=== PATIENT | female | born 1960 | race Caucasian/White ===

== ENCOUNTER → 2016-06-23 | Outpatient (REF) | payer OTHER | LOC: M LAB REF 13:00 | PROVIDERS: ATTEND Physician Assistant Medical | DX: R50.9 Fever, unspecified (principal) ==

== ENCOUNTER → 2016-08-26 | Outpatient (CLI) | payer MEDICARE, OTHER ==
--- NOTE | 2016-08-26 15:58 | REPMRS ---
Patient History The patient states she had a clinical breast exam in 08/15 Patient is postmenopausal. No known family history of cancer. Digital Woman Screen Mammo: August 26, 2016 - Exam #: [id number] Bilateral CC and MLO view(s) were taken. Technologist: Daisha Chapin, Technologist Prior study comparison: July 31, 2015, left breast digital mammo diagnostic unilateral, performed at [facility]. July 24, 2015, digital woman screen mammo performed at [facility]. 2009, bilateral mammogram, performed at [facility]. FINDINGS: The breast tissue is almost entirely fat. There has been no change in the appearance of the mammogram from the prior studies. There is no interval development of dominant mass, areas of architectural distortion, or clustered microcalcification typical of malignancy. Scattered lymph nodes are seen in the axilla. No significant changes when compared with prior studies. ASSESSMENT: BI-RADS/ACR category 2 mammogram. Benign finding(s). Recommendation Routine screening mammogram in 1 year. A. Negative x-ray reports should not delay biopsy if a dominant or clinically suspicious mass is present. B. Four to eight percent of cancers are not identified by mammography. C. Adenosis and dense breast may obscure an underlying neoplasm.(for women over age 40). This mammogram was interpreted with the aid of an FDA-approved computer-aided dectection system. Electronically Signed By: Alexandr Ludwig MD 08/26/16 [id number]
== END ==
LOC: M WHC 12:59
PROVIDERS: ATTEND Nurse Practitioner Women's Health
DX: Z12.31 Encounter for screening mammogram for malignant neoplasm of breast (principal)
CPT/HCPCS: G0202; G0463

== ENCOUNTER → 2016-10-21 | Outpatient (REF) | payer MEDICARE, OTHER | LOC: M LABDRAW1 11:27 | PROVIDERS: ATTEND Family Medicine | DX: E11.9 Type 2 diabetes mellitus without complications (principal) ==

== ENCOUNTER → 2017-05-14 | Outpatient (REF) | payer MEDICARE, MEDICAID ==
[2017-05-14 20:07] LABS: ANION GAP 10 MEQ/L (8-16); BLOOD UREA NITROGEN 14 MG/DL (7-18); CALCIUM LEVEL 9.4 MG/DL (8.5-10.1); CARBON DIOXIDE LEVEL 27 MEQ/L (21-32); CHLORIDE LEVEL 100 MEQ/L (98-107); CHOLESTEROL LEVEL 160 MG/DL (<200); CREATININE FOR GFR 0.81 MG/DL (0.55-1.02); GLOMERULAR FILTRATION RATE > 60.0 (>51); GLUCOSE, FASTING 139 MG/DL (70-105); POTASSIUM SERUM 4.4 MEQ/L (3.5-5.1); SODIUM LEVEL 137 MEQ/L (136-145); TRIGLYCERIDES LEVEL 208 MG/DL (<150)
== END ==
LOC: M SFHCPLAZ 12:48
PROVIDERS: ATTEND Family Medicine
DX: E11.9 Type 2 diabetes mellitus without complications (principal); E78.5 Hyperlipidemia, unspecified; E55.9 Vitamin D deficiency, unspecified

== ENCOUNTER → 2017-09-24 | Outpatient (REF) | payer MEDICARE, MEDICAID ==
[2017-09-24 21:07] LABS: ESTIMATED AVERAGE GLUCOSE 209 MG/DL (60-110); HEMOGLOBIN A1c 8.9 %
[2017-09-24 21:11] LABS: MALB URINE SIEMENS 61.5 MG/L
== END ==
LOC: M SFHCPLAZ 15:17
DX: E11.9 Type 2 diabetes mellitus without complications (principal)

== ENCOUNTER → 2017-09-24 | Outpatient (CLI) | payer MEDICARE, MEDICAID | LOC: M LRY 15:24 | DX: M51.36 Other intervertebral disc degeneration, lumbar region (principal); M25.78 Osteophyte, vertebrae; M54.5 Low back pain; E11.9 Type 2 diabetes mellitus without complications | CPT/HCPCS: 83036 ==

== ENCOUNTER 2017-11-12 06:44 | Day surgery (SDC) | payer MEDICARE, MEDICAID ==
[2017-11-12] MEDS: NS 1,000 ML IV (07:00)
[2017-11-12] MEDS ORDERED: PROPOFOL 500 MG/50 ML VIAL As Ordered (07:27)
[2017-11-12] MEDS ORDERED: fentaNYL 100 MCG/2 ML INJECTION (J3010) As Ordered (07:27)
[2017-11-12] MEDS ORDERED: LIDOCAINE 2% INJ 100 MG/5 ML SDV (FOR ANES.) As Ordered (07:27)
[2017-11-12] MEDS ORDERED: GLUCAGON FOR INJ 1 MG VIAL (J1610) As Ordered (07:52)
== END 2017-11-12 09:00 | disposition home or self-care (01) ==
LOC: M OPP 06:44
DX: Z12.11 Encounter for screening for malignant neoplasm of colon (principal); D12.5 Benign neoplasm of sigmoid colon; D12.3 Benign neoplasm of transverse colon; D12.2 Benign neoplasm of ascending colon; K57.30 Diverticulosis of large intestine without perforation or abscess without bleeding; K64.8 Other hemorrhoids; R10.84 Generalized abdominal pain; K29.70 Gastritis, unspecified, without bleeding; K42.9 Umbilical hernia without obstruction or gangrene; R06.02 Shortness of breath; I10 Essential (primary) hypertension; E78.5 Hyperlipidemia, unspecified; E11.9 Type 2 diabetes mellitus without complications; M19.90 Unspecified osteoarthritis, unspecified site; M54.89 Other dorsalgia; L30.9 Dermatitis, unspecified; F41.9 Anxiety disorder, unspecified; F32.9 Major depressive disorder, single episode, unspecified; G43.909 Migraine, unspecified, not intractable, without status migrainosus; Z78.0 Asymptomatic menopausal state; J45.909 Unspecified asthma, uncomplicated; J44.9 Chronic obstructive pulmonary disease, unspecified; R06.83 Snoring; G47.8 Other sleep disorders; F17.210 Nicotine dependence, cigarettes, uncomplicated; Z79.82 Long term (current) use of aspirin; Z79.899 Other long term (current) drug therapy; Z79.84 Long term (current) use of oral hypoglycemic drugs
CPT/HCPCS: 45385

== ENCOUNTER → 2018-03-24 | Outpatient (CLI) | payer MEDICARE, MEDICAID ==
[2018-03-24 12:09] LABS: HEMATOCRIT 50.7 % (36.0-47.0); HEMOGLOBIN 16.7 g/dl (12.0-15.5)
[2018-03-24 12:32] LABS: GLUCOSE, FASTING 150 MG/DL (70-100)
[2018-03-24 13:12] LABS: ESTIMATED AVERAGE GLUCOSE 163 MG/DL (60-110); HEMOGLOBIN A1c 7.3 %
== END ==
LOC: M LRY 08:52
DX: E11.9 Type 2 diabetes mellitus without complications (principal)
CPT/HCPCS: 82947

== ENCOUNTER → 2018-04-19 | Outpatient (REF) | payer MEDICARE, MEDICAID | LOC: M SFHCPLAZ 16:48 | DX: M54.5 Low back pain (principal) | CPT/HCPCS: 80307 ==

== ENCOUNTER 2018-10-18 15:57 | Emergency (ER) | payer MEDICARE, MEDICAID ==
[~2018-10-18] VITALS: Ht 160 cm; Wt 90.9 kg
[~2018-10-18 15:57] MED LIST: ADV250INH; ALBU83IN; ALPR0.5T7; ASPI1TAB15; CHLO125TA; FLUTISP; GLYB25TA; HYDR-3713; LOSA50TA88; METF-415; METH1TAB40; PARO37.54; PROAAER10; RIZA10TA4; SIMV20TA2
[2018-10-18 15:58] VITALS: BP 137/91
== END 2018-10-18 17:30 | disposition left against medical advice (07) ==
LOC: M ED 15:57
DX: R73.09 Other abnormal glucose (principal); Z53.21 Procedure and treatment not carried out due to patient leaving prior to being seen by health care provider

== ENCOUNTER → 2018-10-22 | Outpatient (REF) | payer MEDICARE, MEDICAID ==
[2018-10-22 12:15] LABS: BASO # 0.1 10^3/uL (0.0-0.2); BASO % 0.5 % (0.0-1.0); EOS # 0.4 10^3/uL (0.0-0.50); EOS % 3.8 % (0.0-3.0); HEMATOCRIT 49.5 % (36.0-47.0); LYMPH # 1.8 10^3/uL (1.5-4.5); LYMPH % 16.4 % (24.0-44.0); MEAN CORPUSCULAR HEMOGLOBIN 30.1 pg (27.0-33.0); MEAN CORPUSCULAR HGB CONC 34.3 g/dl (32.0-36.5); MEAN CORPUSCULAR VOLUME 87.6 fl (80.0-96.0); MONO % 9.1 % (0.0-5.0); NEUTROPHILS # 7.7 10^3/uL (1.8-7.7); NEUTROPHILS % 69.7 % (36.0-66.0); PLATELET COUNT, AUTOMATED 295 10^3/uL (150-450); RED BLOOD COUNT 5.65 10^6/uL (4.00-5.40); WHITE BLOOD COUNT 11.1 10^3/uL (4.0-10.0)
[2018-10-22 12:34] LABS: BLOOD UREA NITROGEN 20 MG/DL (7-18); C REACTIVE PROTEIN QUANTITATIV 5.34 MG/DL (0.00-0.30); CALCIUM LEVEL 9.7 MG/DL (8.5-10.1); CARBON DIOXIDE LEVEL 27 MEQ/L (21-32); CHLORIDE LEVEL 94 MEQ/L (98-107); CREATININE FOR GFR 0.96 MG/DL (0.55-1.30); GLOMERULAR FILTRATION RATE > 60.0 (>51); GLUCOSE, FASTING 224 MG/DL (70-100); POTASSIUM SERUM 3.5 MEQ/L (3.5-5.1); SODIUM LEVEL 130 MEQ/L (136-145)
[2018-10-22 13:42] LABS: HEMOGLOBIN A1c 11.8 %
== END ==
LOC: M LABDRAW1 11:55
PROVIDERS: ATTEND Student in an Organized Health Care Education/Training Program
DX: L03.818 Cellulitis of other sites (principal); E11.9 Type 2 diabetes mellitus without complications

== ENCOUNTER → 2018-11-16 | Outpatient (REF) | payer MEDICARE, MEDICAID ==
[2018-11-16 12:38] LABS: APPEARANCE, URINE CLEAR (CLEAR); BACTERIA, URINE AUTO 1+ (NEGATIVE); BILIRUBIN, URINE AUTO NEGATIVE (NEGATIVE); BLOOD, URINE BLOOD NEGATIVE (NEGATIVE); COLOR, URINE YELLOW (YELLOW); GLUCOSE, URINE (UA) AUTO NEGATIVE (NEGATIVE); KETONE, URINE AUTO NEGATIVE (NEGATIVE); LEUKOCYTE ESTERASE, URINE AUTO TRACE (NEGATIVE); MUCUS, URINE SMALL (NEGATIVE); NITRITE, URINE AUTO NEGATIVE (NEGATIVE); PROTEIN, URINE AUTO NEGATIVE (NEGATIVE); RBC, URINE AUTO 0 /HPF (0-3); SPECIFIC GRAVITY URINE AUTO 1.013 (1.002-1.035); SQUAMOUS EPITHELIAL CELL UR AU 3 /HPF (0-6); UROBILINOGEN, URINE AUTO 0.2 mg/dL (0.0-2.0); WBC, URINE AUTO 1 /HPF (0-3)
== END ==
LOC: M SFHCPLAZ 08:26
PROVIDERS: ATTEND Internal Medicine
DX: D75.1 Secondary polycythemia (principal)

== ENCOUNTER → 2018-12-23 | Outpatient (REF) | payer MEDICARE, MEDICAID ==
[2018-12-23 18:09] LABS: BASO # 0.1 10^3/uL (0.0-0.2); BASO % 0.8 % (0.0-1.0); EOS # 0.7 10^3/uL (0.0-0.50); EOS % 6.2 % (0.0-3.0); HEMATOCRIT 50.6 % (36.0-47.0); HEMOGLOBIN 17.4 g/dl (12.0-15.5); LYMPH # 3.8 10^3/uL (1.5-4.5); LYMPH % 34.7 % (24.0-44.0); MEAN CORPUSCULAR HEMOGLOBIN 30.1 pg (27.0-33.0); MEAN CORPUSCULAR HGB CONC 34.4 g/dl (32.0-36.5); MEAN CORPUSCULAR VOLUME 87.4 fl (80.0-96.0); MONO # 0.7 10^3/uL (0.0-0.8); MONO % 6.5 % (0.0-5.0); NEUTROPHILS # 5.7 10^3/uL (1.8-7.7); NEUTROPHILS % 51.5 % (36.0-66.0); PLATELET COUNT, AUTOMATED 314 10^3/uL (150-450); RED BLOOD COUNT 5.79 10^6/uL (4.00-5.40)
[2018-12-23 18:13] LABS: BLOOD UREA NITROGEN 17 MG/DL (7-18); CALCIUM LEVEL 9.9 MG/DL (8.5-10.1); CARBON DIOXIDE LEVEL 31 MEQ/L (21-32); CHLORIDE LEVEL 102 MEQ/L (98-107); CREATININE FOR GFR 0.74 MG/DL (0.55-1.30); GLOMERULAR FILTRATION RATE > 60.0 (>51); GLUCOSE, FASTING 119 MG/DL (70-100); POTASSIUM SERUM 3.8 MEQ/L (3.5-5.1); SODIUM LEVEL 140 MEQ/L (136-145)
[2018-12-23 19:25] LABS: HEMOGLOBIN A1c 7.7 %
== END ==
LOC: M SFHCPLAZ 12:54
PROVIDERS: ATTEND Family Medicine
DX: D75.1 Secondary polycythemia (principal); E11.9 Type 2 diabetes mellitus without complications

== ENCOUNTER → 2019-03-03 | Outpatient (CLI) | payer MEDICARE, MEDICAID ==
--- NOTE | 2019-03-03 12:55 | REPMRS ---
Patient History The patient states she has not had a clinical breast exam in over a year. No known family history of cancer. 3D TOMOSYNTHESIS WAS PERFORMED. The [facility] lifetime risk for breast cancer is 7.2 %. Digital Woman Screen Mammo: March 03, 2019 - Exam #: [id number] Bilateral CC and MLO view(s) were taken. Technologist: Leatha Adler, Technologist Prior study comparison: August 26, 2016, digital woman screen mammo performed at [facility]. July 31, 2015, left breast digital mammo diagnostic unilateral, performed at [facility]. FINDINGS: There are scattered fibroglandular densities. There has been no change in the appearance of the mammogram from the prior studies. There is a mild amount of residual fibroglandular tissue which is fairly symmetric. There is no interval development of dominant mass, architectural distortion, or clustered microcalcification suggestive of malignancy. Assessment: BI-RADS/ACR category 1 mammogram. Negative Mammogram. Recommendation Routine screening mammogram in 1 year (for women over age 40). This mammogram was interpreted with the aid of an FDA-approved computer-aided dectection system. Electronically Signed By: Girish Mancini MD 03/03/19 [id number]
== END ==
LOC: M WHC 11:27
PROVIDERS: ATTEND Family Medicine
DX: Z12.31 Encounter for screening mammogram for malignant neoplasm of breast (principal)

== ENCOUNTER → 2019-03-30 | Outpatient (REF) | payer MEDICARE, MEDICAID ==
[~2019-03-30] MED LIST changes: -RIZA10TA4; +RIZA10TA58
== END ==
LOC: M SFHCPLAZ 10:43
PROVIDERS: ATTEND Family Medicine
DX: E11.9 Type 2 diabetes mellitus without complications (principal); I10 Essential (primary) hypertension; D75.1 Secondary polycythemia; Z53.8 Procedure and treatment not carried out for other reasons

== ENCOUNTER → 2019-06-22 | Outpatient (REF) | payer MEDICARE, MEDICAID ==
[~2019-06-22] MED LIST changes: -SIMV20TA2; +SIMV20TA22
[2019-06-22 12:02] LABS: HEMATOCRIT 51.5 % (36.0-47.0); HEMOGLOBIN 17.4 g/dl (12.0-15.5); MEAN CORPUSCULAR HEMOGLOBIN 31.5 pg (27.0-33.0); MEAN CORPUSCULAR HGB CONC 33.8 g/dl (32.0-36.5); MEAN CORPUSCULAR VOLUME 93.1 fl (80.0-96.0); PLATELET COUNT, AUTOMATED 306 10^3/uL (150-450); RED BLOOD COUNT 5.53 10^6/uL (4.00-5.40); WHITE BLOOD COUNT 12.2 10^3/uL (4.0-10.0)
[2019-06-22 12:13] LABS: BLOOD UREA NITROGEN 14 MG/DL (7-18); CALCIUM LEVEL 9.6 MG/DL (8.5-10.1); CARBON DIOXIDE LEVEL 29 MEQ/L (21-32); CHLORIDE LEVEL 99 MEQ/L (98-107); CHOLESTEROL LEVEL 157 MG/DL (<200); CHOLESTEROL RISK RATIO 4.025 (<5); CREATININE FOR GFR 0.74 MG/DL (0.55-1.30); GLOMERULAR FILTRATION RATE > 60.0 (>51); GLUCOSE, FASTING 120 MG/DL (70-100); HDL CHOLESTEROL 39 MG/DL (>40); LDL CHOLESTEROL 90 MG/DL (<100); NON-HDL-C 118 MG/DL; POTASSIUM SERUM 4.2 MEQ/L (3.5-5.1); SODIUM LEVEL 136 MEQ/L (136-145); TRIGLYCERIDES LEVEL 140 MG/DL (<150)
[2019-06-22 13:09] LABS: HEMOGLOBIN A1c 6.2 %
== END ==
LOC: M SFHCPLAZ 08:38
PROVIDERS: ATTEND Family Medicine
DX: E11.9 Type 2 diabetes mellitus without complications (principal); I10 Essential (primary) hypertension; D75.1 Secondary polycythemia

== ENCOUNTER → 2019-06-28 | Outpatient (CLI) | payer MEDICARE, MEDICAID ==
--- NOTE | 2019-06-28 13:13 | REP ---
Low-dose lung screening CT of the chest: Comparison is 06/03/2018. The study is performed without IV contrast. The images are presented at lung windowing only. There are no lung nodules or masses. There are no infiltrates or pleural effusions. Impression: Category one low-dose lung screening CT of the chest. The probability of malignancy is less than 1%. Depending on risk factors consider annual follow-up low-dose lung screening CT. Electronically Signed by Girish Villarreal MD 06/28/2019 01:05 P
== END ==
LOC: M RAD 09:57
PROVIDERS: ATTEND Internal Medicine Pulmonary Disease
DX: Z12.2 Encounter for screening for malignant neoplasm of respiratory organs (principal); F17.210 Nicotine dependence, cigarettes, uncomplicated; J44.0 Chronic obstructive pulmonary disease with (acute) lower respiratory infection
CPT/HCPCS: G0297; G0463

== ENCOUNTER → 2019-09-30 | Outpatient (REF) | payer MEDICARE, OTHER ==
[2019-09-30 13:28] LABS: HEMATOCRIT 46.8 % (36.0-47.0); HEMOGLOBIN 16.5 g/dl (12.0-15.5); MEAN CORPUSCULAR HEMOGLOBIN 31.9 pg (27.0-33.0); MEAN CORPUSCULAR HGB CONC 35.3 g/dl (32.0-36.5); MEAN CORPUSCULAR VOLUME 90.3 fl (80.0-96.0); PLATELET COUNT, AUTOMATED 319 10^3/uL (150-450); RED BLOOD COUNT 5.18 10^6/uL (4.00-5.40); WHITE BLOOD COUNT 11.2 10^3/uL (4.0-10.0)
[2019-09-30 14:00] LABS: MALB URINE SIEMENS 27.7 MG/L; MAU/CREAT RATIO 33.3 MCG/MG (0.0-30.0)
[2019-09-30 14:13] LABS: HEMOGLOBIN A1c 7.2 %
== END ==
LOC: M SFHCPLAZ 11:10
PROVIDERS: ATTEND Family Medicine
DX: E11.9 Type 2 diabetes mellitus without complications (principal); D75.1 Secondary polycythemia
CPT/HCPCS: 36415; 82043; 82570; 83036; 85027; G0463

== ENCOUNTER → 2019-11-18 | Outpatient (CLI) | payer MEDICARE, OTHER ==
[2019-11-18 16:55] LABS: BASO # 0.1 10^3/uL (0.0-0.2); BASO % 1.1 % (0.0-1.0); EOS # 0.8 10^3/uL (0.0-0.5); EOS % 7.9 % (0.0-3.0); HEMATOCRIT 47.5 % (36.0-47.0); HEMOGLOBIN 16.9 g/dl (12.0-15.5); LYMPH % 28.9 % (24.0-44.0); MEAN CORPUSCULAR HEMOGLOBIN 31.4 pg (27.0-33.0); MEAN CORPUSCULAR HGB CONC 35.6 g/dl (32.0-36.5); MEAN CORPUSCULAR VOLUME 88.3 fl (80.0-96.0); MONO # 0.7 10^3/uL (0.0-0.8); MONO % 7.1 % (0.0-5.0); NEUTROPHILS # 5.7 10^3/uL (1.5-8.5); NEUTROPHILS % 54.4 % (36.0-66.0); PLATELET COUNT, AUTOMATED 332 10^3/uL (150-450); RED BLOOD COUNT 5.38 10^6/uL (4.00-5.40); WHITE BLOOD COUNT 10.4 10^3/uL (4.0-10.0)
[2019-11-18 16:57] LABS: C REACTIVE PROTEIN QUANTITATIV 0.93 MG/DL (0.00-0.30); RHEUMATOID FACTOR QUANT < 10.0 IU/ML (<15.0); URIC ACID 5.2 MG/DL (2.6-6.0)
[2019-11-18 17:40] LABS: ERYTHROCYTE SEDIMENTATION RATE 12 mm/hr (0-30)
[2019-11-21 19:09] LABS: ANTINUCLEAR ANTIBODIES DIRECT Negative (Negative); Lyme Disease IgG/IgM Antibodie <0.91 ISR (0.00-0.90); Lyme Disease IgM Ab Quantitati <0.80 index (0.00-0.79)
== END ==
LOC: M PLALAB 14:04
PROVIDERS: ATTEND Physician Assistant Surgical
DX: M25.522 Pain in left elbow (principal)

== ENCOUNTER → 2020-07-26 | Outpatient (CLI) | payer MEDICARE, OTHER ==
[~2020-07-26] MED LIST changes: +ASPI-546; -ASPI1TAB15; +METH-1164; -METH1TAB40
--- NOTE | 2020-07-26 14:01 | REP ---
INDICATION: LUNG SCREENING. COMPARISON: 06/28/2019, 06/03/2018 TECHNIQUE: Low-dose lung CT screening protocol with thin section lung windows presented for review. FINDINGS: Lung la are hyperinflated some minor subpleural dependent atelectatic change in the posterior mid lower lung zones unchanged. Some subtle ground-glass opacities are seen in the right medial apex unchanged representing some fibrosis. Some curvilinear fibro atelectatic change in the lateral basal segment left lower lobe is also stable. Some lateral segment right middle lobe fibro atelectatic change also stable. No pulmonary nodule, parenchymal mass, dense consolidation, pleural thickening or effusion. Heart is not enlarged. Central pulmonary arteries appear symmetric but prominent at the moe consistent with COPD and pulmonary artery hypertension. IMPRESSION: 1. Lung RADS category 1 negative examination, no evidence of malignancy. Stable examination. Patients with this category of findings have less than 1% chance of malignancy at the time of the examination. Patient's at height and risk for lung malignancy should have annual lung screening CT. <Electronically signed by Alexandr Ludwig > 07/26/20 [id number]
== END ==
LOC: M RAD 12:47
PROVIDERS: ATTEND Internal Medicine Pulmonary Disease
DX: Z12.2 Encounter for screening for malignant neoplasm of respiratory organs (principal); F17.210 Nicotine dependence, cigarettes, uncomplicated

== ENCOUNTER → 2021-01-29 | Outpatient (CLI) | payer OTHER ==
[~2021-01-29] MED LIST changes: +GLYB2.5T7; -GLYB25TA; +LOSA50TA28; -LOSA50TA88
[2021-01-29 13:06] LABS: BLOOD UREA NITROGEN 16 MG/DL (7-18); CALCIUM LEVEL 9.8 MG/DL (8.5-10.1); CARBON DIOXIDE LEVEL 30 MEQ/L (21-32); CHLORIDE LEVEL 95 MEQ/L (98-107); CHOLESTEROL LEVEL 158 MG/DL (<200); CHOLESTEROL RISK RATIO 3.853 (<5); CREATININE FOR GFR 0.72 MG/DL (0.55-1.30); GLOMERULAR FILTRATION RATE > 60.0 (>51); GLUCOSE, FASTING 141 MG/DL (70-100); HDL CHOLESTEROL 41 MG/DL (>40); LDL CHOLESTEROL 90 MG/DL (<100); NON-HDL-C 117 MG/DL; POTASSIUM SERUM 4.2 MEQ/L (3.5-5.1); SODIUM LEVEL 133 MEQ/L (136-145); TRIGLYCERIDES LEVEL 134 MG/DL (<150)
[2021-01-29 13:32] LABS: HEMOGLOBIN A1c 6.6 %
== END ==
LOC: M PLALAB 09:12
PROVIDERS: ATTEND Student in an Organized Health Care Education/Training Program
DX: Z79.899 Other long term (current) drug therapy (principal)

== ENCOUNTER → 2021-08-16 | Outpatient (CLI) | payer OTHER ==
[~2021-08-16] MED LIST changes: -PARO37.54; +PARO37.55
[2021-08-16 15:07] LABS: BASO # 0.1 10^3/uL (0.0-0.2); BASO % 0.9 % (0.0-1.0); EOS # 0.7 10^3/uL (0.0-0.5); EOS % 6.7 % (0.0-3.0); HEMATOCRIT 47.5 % (36.0-47.0); HEMOGLOBIN 16.7 g/dl (12.0-15.5); LYMPH # 2.7 10^3/uL (1.5-5.0); LYMPH % 26.7 % (24.0-44.0); MEAN CORPUSCULAR HEMOGLOBIN 31.2 pg (27.0-33.0); MEAN CORPUSCULAR HGB CONC 35.2 g/dl (32.0-36.5); MEAN CORPUSCULAR VOLUME 88.8 fl (80.0-96.0); MONO # 0.8 10^3/uL (0.0-0.8); MONO % 8.3 % (2.0-8.0); NEUTROPHILS # 5.7 10^3/uL (1.5-8.5); NEUTROPHILS % 56.9 % (36.0-66.0); PLATELET COUNT, AUTOMATED 297 10^3/uL (150-450); RED BLOOD COUNT 5.35 10^6/uL (4.00-5.40); WHITE BLOOD COUNT 10.1 10^3/uL (4.0-10.0)
[2021-08-16 15:34] LABS: HEMOGLOBIN A1c 6.9 %
[2021-08-16 15:43] LABS: MALB URINE SIEMENS 97.3 MG/L; MAU/CREAT RATIO 44.2 MCG/MG (0.0-30.0)
== END ==
LOC: M LAB 14:13
PROVIDERS: ATTEND Student in an Organized Health Care Education/Training Program
DX: E55.9 Vitamin D deficiency, unspecified (principal); D75.1 Secondary polycythemia; E11.9 Type 2 diabetes mellitus without complications; Z79.899 Other long term (current) drug therapy

== ENCOUNTER → 2021-08-16 | Outpatient (CLI) | payer OTHER | LOC: M RAD 13:54 | PROVIDERS: ATTEND Internal Medicine Pulmonary Disease | DX: Z12.2 Encounter for screening for malignant neoplasm of respiratory organs (principal); F17.210 Nicotine dependence, cigarettes, uncomplicated; E55.9 Vitamin D deficiency, unspecified; D75.1 Secondary polycythemia; E11.9 Type 2 diabetes mellitus without complications; Z79.899 Other long term (current) drug therapy ==

== ENCOUNTER → 2021-12-20 | Outpatient (CLI) | payer OTHER ==
[~2021-12-20] MED LIST changes: +ALBU2.5V10; -ALBU83IN
[2021-12-20 14:36] LABS: BLOOD UREA NITROGEN 9 MG/DL (7-18); CALCIUM LEVEL 9.6 MG/DL (8.5-10.1); CARBON DIOXIDE LEVEL 30 MEQ/L (21-32); CHLORIDE LEVEL 99 MEQ/L (98-107); CREATININE FOR GFR 0.82 MG/DL (0.55-1.30); GLOMERULAR FILTRATION RATE > 60.0 (>51); GLUCOSE, FASTING 204 MG/DL (70-100); SODIUM LEVEL 134 MEQ/L (136-145)
[2021-12-20 15:15] LABS: TOTAL 25(OH) VITAMIN D 23.7 NG/ML (30.0-100.0)
[2021-12-20 17:24] LABS: MAU/CREAT RATIO 132.5 MCG/MG (0.0-30.0)
[2021-12-20 17:36] LABS: HEMOGLOBIN A1c 8.9 %
== END ==
LOC: M WUC 11:22
PROVIDERS: ATTEND Student in an Organized Health Care Education/Training Program
DX: E55.9 Vitamin D deficiency, unspecified (principal); E11.9 Type 2 diabetes mellitus without complications; Z79.899 Other long term (current) drug therapy

== ENCOUNTER → 2022-01-16 | Outpatient (CLI) | payer OTHER | LOC: M SOG 08:43 | PROVIDERS: ATTEND Orthopaedic Surgery Adult Reconstructive Orthopaedic Surgery | DX: R52 Pain, unspecified (principal) ==

== ENCOUNTER → 2022-05-07 | Outpatient (CLI) | payer OTHER ==
[2022-05-07 17:03] LABS: BLOOD UREA NITROGEN 11 MG/DL (9-23); CALCIUM LEVEL 9.6 MG/DL (8.5-10.1); CARBON DIOXIDE LEVEL 32 MMOL/L (20-31); CHLORIDE LEVEL 94 MMOL/L (98-107); CHOLESTEROL LEVEL 134 MG/DL (<200); CREATININE FOR GFR 0.56 MG/DL (0.55-1.30); GLOMERULAR FILTRATION RATE > 60.0 (>51); GLUCOSE, FASTING 161 MG/DL (60-100); HDL CHOLESTEROL 40.6 MG/DL (>40); LDL CHOLESTEROL 74.4 MG/DL (<100); NON-HDL-C 93 MG/DL; POTASSIUM SERUM 4.3 MMOL/L (3.5-5.1); SODIUM LEVEL 131 MMOL/L (136-145); TRIGLYCERIDES LEVEL 95 MG/DL (<150)
[2022-05-07 18:16] LABS: CREATININE, URINE 89.1 MG/DL; MAU/CREAT RATIO 90.9 MCG/MG (0.0-30.0)
[2022-05-07 19:42] LABS: HEMOGLOBIN A1c 6.4 % (4.0-6.0)
== END ==
LOC: M WUC 11:11
PROVIDERS: ATTEND Student in an Organized Health Care Education/Training Program
DX: E11.9 Type 2 diabetes mellitus without complications (principal); E78.2 Mixed hyperlipidemia

== ENCOUNTER → 2022-05-12 | Outpatient (CLI) | payer OTHER ==
[2022-05-12 17:47] LABS: BASO # 0.1 10^3/uL (0.0-0.2); BASO % 0.9 % (0.0-1.0); EOS # 0.7 10^3/uL (0.0-0.5); EOS % 5.7 % (0.0-3.0); HEMATOCRIT 45.2 % (36.0-47.0); HEMOGLOBIN 15.5 g/dl (12.0-15.5); LYMPH # 3.2 10^3/uL (1.5-5.0); LYMPH % 27.7 % (24.0-44.0); MEAN CORPUSCULAR HEMOGLOBIN 31.6 pg (27.0-33.0); MEAN CORPUSCULAR HGB CONC 34.3 g/dl (32.0-36.5); MEAN CORPUSCULAR VOLUME 92.2 fl (80.0-96.0); MONO # 0.9 10^3/uL (0.0-0.8); MONO % 7.7 % (2.0-8.0); NEUTROPHILS # 6.6 10^3/uL (1.5-8.5); NEUTROPHILS % 57.5 % (36.0-66.0); PLATELET COUNT, AUTOMATED 317 10^3/uL (150-450); WHITE BLOOD COUNT 11.5 10^3/uL (4.0-10.0)
[2022-05-12 18:00] LABS: ALBUMIN 4.2 G/DL (3.2-5.2); BILIRUBIN,DIRECT 0.1 MG/DL (<0.4); BILIRUBIN,TOTAL 0.3 MG/DL (0.3-1.2); TOTAL PROTEIN 7.5 G/DL (5.7-8.2)
== END ==
LOC: M PLALAB 14:27
PROVIDERS: ATTEND Student in an Organized Health Care Education/Training Program
DX: R10.10 Upper abdominal pain, unspecified (principal)

== ENCOUNTER → 2022-11-06 | Outpatient (CLI) | payer OTHER, MEDICAID ==
[~2022-11-06] MED LIST changes: +FLUT50SP17; -FLUTISP
== END ==
LOC: M RAD 13:14
PROVIDERS: ATTEND Internal Medicine Pulmonary Disease
DX: Z12.2 Encounter for screening for malignant neoplasm of respiratory organs (principal)

== ENCOUNTER → 2023-04-20 | Outpatient (CLI) | payer OTHER, MEDICAID ==
[2023-04-20 17:54] LABS: HEMOGLOBIN A1c 6.6 % (4.0-6.0)
[2023-04-20 18:03] LABS: BLOOD UREA NITROGEN 10 MG/DL (9-23); CARBON DIOXIDE LEVEL 27 MMOL/L (20-31); CHLORIDE LEVEL 93 MMOL/L (98-107); CHOLESTEROL LEVEL 145 MG/DL (<200); CREATININE FOR GFR 0.57 MG/DL (0.55-1.30); FREE T4 1.32 NG/DL (0.89-1.76); GLOMERULAR FILTRATION RATE > 60.0 (>45); GLUCOSE, FASTING 103 MG/DL (74-106); HDL CHOLESTEROL 45.3 MG/DL (>40); LDL CHOLESTEROL 75.5 MG/DL (<100); NON-HDL-C 99.7 MG/DL; POTASSIUM SERUM 4.4 MMOL/L (3.5-5.1); SODIUM LEVEL 130 MMOL/L (136-145); THYROID STIMULATING HORMONE 2.558 uIU/ML (0.55-4.78); TOTAL 25(OH) VITAMIN D 35.2 NG/ML (20.0-100.0); TRIGLYCERIDES LEVEL 121 MG/DL (<150)
== END ==
LOC: M PLALAB 16:06
PROVIDERS: ATTEND Student in an Organized Health Care Education/Training Program
DX: E78.5 Hyperlipidemia, unspecified (principal); E55.9 Vitamin D deficiency, unspecified; Z13.29 Encounter for screening for other suspected endocrine disorder; E11.9 Type 2 diabetes mellitus without complications; I10 Essential (primary) hypertension

== ENCOUNTER → 2023-05-06 | Outpatient (REF) | payer OTHER, MEDICAID ==
[~2023-05-06] MED LIST changes: -FLUT50SP17; +FLUTISP
== END ==
LOC: M SFHCPLAZ 08:13
PROVIDERS: ATTEND Student in an Organized Health Care Education/Training Program
DX: Z53.9 Procedure and treatment not carried out, unspecified reason (principal)

== ENCOUNTER → 2023-05-12 | Outpatient (CLI) | payer OTHER, MEDICAID | LOC: M WHC 14:16 | PROVIDERS: ATTEND Student in an Organized Health Care Education/Training Program | DX: Z12.31 Encounter for screening mammogram for malignant neoplasm of breast (principal); E87.1 Hypo-osmolality and hyponatremia ==

== ENCOUNTER → 2023-05-12 | Outpatient (CLI) | payer OTHER, MEDICAID ==
[2023-05-12 16:22] LABS: BLOOD UREA NITROGEN 8 MG/DL (9-23); CALCIUM LEVEL 9.8 MG/DL (8.3-10.6); CARBON DIOXIDE LEVEL 28 MMOL/L (20-31); CHLORIDE LEVEL 97 MMOL/L (98-107); GLOMERULAR FILTRATION RATE > 60.0 (>45); GLUCOSE, FASTING 79 MG/DL (74-106); POTASSIUM SERUM 4.5 MMOL/L (3.5-5.1); SODIUM LEVEL 133 MMOL/L (136-145)
== END ==
LOC: M PLALAB 14:20
PROVIDERS: ATTEND Student in an Organized Health Care Education/Training Program
DX: E87.1 Hypo-osmolality and hyponatremia (principal)

== ENCOUNTER → 2023-07-09 | Outpatient (CLI) | payer OTHER, MEDICAID ==
[2023-07-09 15:59] LABS: HEMATOCRIT 47.5 % (36.0-47.0); HEMOGLOBIN 16.3 g/dl (12.0-15.5); MEAN CORPUSCULAR HGB CONC 34.3 g/dl (32.0-36.5); MEAN CORPUSCULAR VOLUME 90.5 fl (80.0-96.0); PLATELET COUNT, AUTOMATED 318 10^3/uL (150-450); RED BLOOD COUNT 5.25 10^6/uL (4.00-5.40); WHITE BLOOD COUNT 10.9 10^3/uL (4.0-10.0)
[2023-07-09 16:38] LABS: BLOOD UREA NITROGEN 13 MG/DL (9-23); CALCIUM LEVEL 9.8 MG/DL (8.3-10.6); CARBON DIOXIDE LEVEL 27 MMOL/L (20-31); CHLORIDE LEVEL 101 MMOL/L (98-107); CREATININE FOR GFR 0.69 MG/DL (0.55-1.30); GLOMERULAR FILTRATION RATE > 60.0 (>45); GLUCOSE, FASTING 152 MG/DL (74-106); POTASSIUM SERUM 4.3 MMOL/L (3.5-5.1); SODIUM LEVEL 137 MMOL/L (136-145)
== END ==
LOC: M PLALAB 13:08
PROVIDERS: ATTEND Student in an Organized Health Care Education/Training Program
DX: I10 Essential (primary) hypertension (principal)

== ENCOUNTER → 2023-07-17 | Outpatient (REF) | payer OTHER, MEDICAID | LOC: M SFHCPLAZ 14:52 | PROVIDERS: ATTEND Student in an Organized Health Care Education/Training Program | DX: D45 Polycythemia vera (principal) ==

== ENCOUNTER → 2023-08-04 | Outpatient (REF) | payer OTHER, MEDICAID | LOC: M SFHCPLAZ 16:31 | PROVIDERS: ATTEND Family Medicine | DX: D75.1 Secondary polycythemia (principal) ==

== ENCOUNTER → 2023-09-21 | Outpatient (REF) | payer OTHER, MEDICAID | LOC: M SFHCPLAZ 16:45 | PROVIDERS: ATTEND Student in an Organized Health Care Education/Training Program | DX: N39.0 Urinary tract infection, site not specified (principal) ==

== ENCOUNTER 2023-10-01 16:22 | Observation (INO) | payer OTHER, MEDICAID ==
[~2023-10-01] VITALS: Ht 160 cm; Wt 85.6 kg
[2023-10-01] MEDS ORDERED: SITA50TAB PO (16:31)
[2023-10-01] MEDS ORDERED: ISOVUE-370 76% 100ML VIAL As Ordered ONE (17:39)
[2023-10-01 17:51] LABS: BASO # 0.1 10^3/uL (0.0-0.2); BASO % 0.9 % (0.0-1.0); EOS # 0.6 10^3/uL (0.0-0.5); EOS % 5.7 % (0.0-3.0); HEMATOCRIT 42.1 % (36.0-47.0); HEMOGLOBIN 14.8 g/dl (12.0-15.5); LYMPH # 2.8 10^3/uL (1.5-5.0); LYMPH % 25.9 % (24.0-44.0); MEAN CORPUSCULAR HEMOGLOBIN 31.5 pg (27.0-33.0); MEAN CORPUSCULAR HGB CONC 35.2 g/dl (32.0-36.5); MEAN CORPUSCULAR VOLUME 89.6 fl (80.0-96.0); MONO # 0.9 10^3/uL (0.0-0.8); MONO % 8.5 % (2.0-8.0); NEUTROPHILS # 6.4 10^3/uL (1.5-8.5); NEUTROPHILS % 58.5 % (36.0-66.0); PLATELET COUNT, AUTOMATED 282 10^3/uL (150-450); WHITE BLOOD COUNT 10.9 10^3/uL (4.0-10.0)
[2023-10-01 18:07] LABS: INR 1.1; PARTIAL THROMBOPLASTIN TIME 33.3 SECONDS (24.8-34.2); PROTHROMBIN TIME 13.9 SECONDS (12.5-14.5)
[2023-10-01 18:21] LABS: BLOOD UREA NITROGEN 14 MG/DL (9-23); CALCIUM LEVEL 9.6 MG/DL (8.3-10.6); CARBON DIOXIDE LEVEL 26 MMOL/L (20-31); CHLORIDE LEVEL 99 MMOL/L (98-107); CREATININE FOR GFR 0.69 MG/DL (0.55-1.30); GLOMERULAR FILTRATION RATE > 60.0 (>45); GLUCOSE, FASTING 114 MG/DL (74-106); POTASSIUM SERUM 4.2 MMOL/L (3.5-5.1); SODIUM LEVEL 133 MMOL/L (136-145)
[2023-10-01] MEDS: ASPIRIN 81MG CHEW TABLET PO ONE (19:51)
[2023-10-01] MEDS: TIOTROPIUM INHALER/CAPSULE (SPIRIVA) INH SCH (20:00)
[2023-10-01] MEDS: INSULIN LISPRO (NovoLOG) PER UNIT SC SCH (21:00)
[2023-10-01] MEDS ORDERED: DEXTROSE 50% 50ML SYRINGE IV PRN (21:05)
[2023-10-01] MEDS ORDERED: GLUCAGON INJ 1MG VIAL SC PRN (21:05)
[2023-10-01] MEDS ORDERED: GLUCOSE 4 GM CHEW PO PRN (21:05)
[2023-10-01] MEDS ORDERED: ASPI-615 PO (22:11)
[2023-10-01] MEDS ORDERED: METF-877 PO (22:11)
[2023-10-01] MEDS ORDERED: HYDR-4514 PO (22:11)
[2023-10-01] MEDS ORDERED: ALPR0.5T3 PO (22:11)
[2023-10-01] MEDS ORDERED: SPIR1CAP INH (22:11)
[2023-10-01] MEDS ORDERED: ALBU8.5H INH (22:11)
[2023-10-01] MEDS ORDERED: RIZA10TA66 PO (22:11)
[2023-10-01] MEDS ORDERED: AMLO1TAB24 PO (22:11)
[2023-10-01] MEDS ORDERED: JANU100T PO (22:11)
[2023-10-01] MEDS ORDERED: PARO25TA5 PO (22:11)
[2023-10-01] MEDS ORDERED: PARO37.55 PO (22:11)
[2023-10-01] MEDS ORDERED: HYDR12.55 PO (22:11)
[2023-10-01] MEDS ORDERED: TELM1TAB35 PO (22:20)
[2023-10-01] MEDS ORDERED: ADV250INH INH (22:20)
[2023-10-01] MEDS ORDERED: MULT-40 PO (22:22)
[2023-10-01] MEDS ORDERED: HOME MED LIST COMPLETE! XX SCH (22:25)
[2023-10-01 22:38] LABS: HEMOGLOBIN A1c 6.9 % (4.0-6.0)
[2023-10-01 22:54] VITALS: BP 104/62; TEMP 97; O2SAT 95
[2023-10-01 23:00] LABS: FREE T4 1.14 NG/DL (0.89-1.76)
[2023-10-01 23:03] LABS: THYROID STIMULATING HORMONE 3.05 uIU/ML (0.55-4.78)
[2023-10-02] MEDS ORDERED: ALPRAZolam 0.5 MG TAB PO PRN (00:30)
[2023-10-02] MEDS ORDERED: ALBUTEROL 90 MCG/ACT 8GM HFA INHALER INH PRN (00:30)
[2023-10-02] MEDS ORDERED: TELM1TAB37 PO (00:35)
[2023-10-02] MEDS: PARoxetine 25MG CR TAB (PAXIL CR) PO SCH (02:04)
[2023-10-02 03:29] VITALS: BP 148/58; TEMP 97.9; O2SAT 93
[2023-10-02 06:15] LABS: HEMOGLOBIN 15.4 g/dl (12.0-15.5); MEAN CORPUSCULAR HGB CONC 34.2 g/dl (32.0-36.5); MEAN CORPUSCULAR VOLUME 90.7 fl (80.0-96.0); PLATELET COUNT, AUTOMATED 275 10^3/uL (150-450); RED BLOOD COUNT 4.96 10^6/uL (4.00-5.40)
[2023-10-02 06:47] LABS: BLOOD UREA NITROGEN 11 MG/DL (9-23); CALCIUM LEVEL 9.4 MG/DL (8.3-10.6); CARBON DIOXIDE LEVEL 29 MMOL/L (20-31); CHLORIDE LEVEL 103 MMOL/L (98-107); CHOLESTEROL LEVEL 86 MG/DL (<200); CHOLESTEROL RISK RATIO 2.57 (<5); CREATININE FOR GFR 0.62 MG/DL (0.55-1.30); GLOMERULAR FILTRATION RATE > 60.0 (>45); GLUCOSE, FASTING 143 MG/DL (74-106); HDL CHOLESTEROL 33.4 MG/DL (>40); LDL CHOLESTEROL 32.4 MG/DL (<100); MAGNESIUM LEVEL 1.3 MG/DL (1.8-2.4); NON-HDL-C 52.6 MG/DL; POTASSIUM SERUM 4.8 MMOL/L (3.5-5.1); SODIUM LEVEL 138 MMOL/L (136-145); TRIGLYCERIDES LEVEL 101 MG/DL (<150)
[2023-10-02] MEDS: INSULIN LISPRO (NovoLOG) PER UNIT SC SCH (07:30)
[2023-10-02 07:56] VITALS: BP 156/58; TEMP 97.4; O2SAT 93
[2023-10-02] MEDS: SITagliptin 50 MG TAB (JANUVIA) PO SCH (08:15)
[2023-10-02] MEDS: ASPIRIN 81MG ENTERIC TABLET PO SCH (08:15)
[2023-10-02] MEDS: MAG SULF 1GM/100ML (MAG RUN) 1 GM in IV 1 EA IV SCH (08:15)
[2023-10-02] MEDS: ADVAIR HFA 115/21MCG INHALER INH SCH (08:17)
[2023-10-02] MEDS ORDERED: amLODIPine 5 MG TAB PO SCH (09:00)
[2023-10-02] MEDS ORDERED: hydroCHLOROthiazide 12.5 MG CAPSULE PO SCH (09:00)
[2023-10-02] MEDS: ALPRAZolam 0.5 MG TAB PO ONE (11:19)
[2023-10-02] MEDS: ANEXSIA, NORCO 7.5MG/325MG TABLET(HYDROCODONE/APAP) PO PRN (11:20)
[2023-10-02] MEDS: ATORVASTATIN 20 MG TAB PO SCH (11:20)
[2023-10-02 12:18] VITALS: BP 146/78; TEMP 98.1; O2SAT 92
[2023-10-02] MEDS ORDERED: ATOR1TAB21 PO (13:01)
[2023-10-02] MEDS ORDERED: ROSU20TA61 PO (13:24)
[2023-10-02] MEDS ORDERED: PAROXETINE PO SCH (21:00)
[2023-10-03] MEDS ORDERED: UNRESOLVED CLARIFICATION ENTRY XX SCH (00:01)
== END 2023-10-02 14:45 | disposition home or self-care (01) ==
LOC: M ED 16:22 → M ED INP 16:23 → ENRESERV 22:13 → M PCU 22:51
PROVIDERS: ADMIT Preventive Medicine Undersea and Hyperbaric Medicine; ATTEND Preventive Medicine Undersea and Hyperbaric Medicine
DX: H53.8 Other visual disturbances (principal); R42 Dizziness and giddiness; R29.700 NIHSS score 0; I16.0 Hypertensive urgency; I35.8 Other nonrheumatic aortic valve disorders; E11.9 Type 2 diabetes mellitus without complications; I10 Essential (primary) hypertension; E78.5 Hyperlipidemia, unspecified; J44.9 Chronic obstructive pulmonary disease, unspecified; J45.909 Unspecified asthma, uncomplicated; F41.9 Anxiety disorder, unspecified; F32.A Depression, unspecified; G43.909 Migraine, unspecified, not intractable, without status migrainosus; M19.90 Unspecified osteoarthritis, unspecified site; K21.9 Gastro-esophageal reflux disease without esophagitis; M54.2 Cervicalgia; Z90.49 Acquired absence of other specified parts of digestive tract; F17.290 Nicotine dependence, other tobacco product, uncomplicated; Z83.3 Family history of diabetes mellitus; Z82.49 Family history of ischemic heart disease and other diseases of the circulatory system; Z81.8 Family history of other mental and behavioral disorders; Z79.899 Other long term (current) drug therapy; Z79.82 Long term (current) use of aspirin; Z79.84 Long term (current) use of oral hypoglycemic drugs; Z79.51 Long term (current) use of inhaled steroids
CPT/HCPCS: 36415; 70450; 70496; 70498; 70551; 71045; 80047; 80048; 80061; 83036; 83735; 84439; 84443; 85025; 85027; 85610; 85730; 93005; 93041; 93306; 94640; 94760; 99285; G0378; J3475; Q9967

== ENCOUNTER → 2023-12-08 | Outpatient (CLI) | payer OTHER, MEDICAID ==
[~2023-12-08] MED LIST changes: +ADV250INH INH; +ALBU8.5H INH; +ALPR0.5T3 PO; +AMLO1TAB24 PO; +ASPI-615 PO; +ATOR1TAB21 PO; +HYDR-4514 PO; +HYDR12.55 PO; +JANU100T PO; +METF-877 PO; +MULT-40 PO; +PARO25TA5 PO; +PARO37.55 PO; +RIZA10TA66 PO; +ROSU20TA61 PO; +SITA50TAB PO; +SPIR1CAP INH; +TELM1TAB35 PO; +TELM1TAB37 PO
[2023-12-08 10:45] LABS: HEMOGLOBIN A1c 7.1 % (4.0-6.0)
[2023-12-08 11:04] LABS: BLOOD UREA NITROGEN 11 MG/DL (9-23); CALCIUM LEVEL 9.3 MG/DL (8.3-10.6); CARBON DIOXIDE LEVEL 28 MMOL/L (20-31); CHLORIDE LEVEL 96 MMOL/L (98-107); CREATININE FOR GFR 0.68 MG/DL (0.55-1.30); FREE T4 1.11 NG/DL (0.89-1.76); GLOMERULAR FILTRATION RATE > 60.0 (>45); GLUCOSE, FASTING 153 MG/DL (74-106); POTASSIUM SERUM 4.7 MMOL/L (3.5-5.1); SODIUM LEVEL 131 MMOL/L (136-145); THYROID STIMULATING HORMONE 2.363 uIU/ML (0.55-4.78)
[2023-12-08 13:14] LABS: PTH INTACT 46.1 PG/ML (18.5-88.0)
== END ==
LOC: M LAB 08:51 → M PLALAB 08:51
PROVIDERS: ATTEND Student in an Organized Health Care Education/Training Program
DX: I1A.0 Resistant hypertension (principal); E11.9 Type 2 diabetes mellitus without complications

== ENCOUNTER → 2024-01-05 | Outpatient (CLI) | payer OTHER, MEDICAID | LOC: M RAD 10:01 | PROVIDERS: ATTEND Internal Medicine Pulmonary Disease | DX: Z12.2 Encounter for screening for malignant neoplasm of respiratory organs (principal); F17.210 Nicotine dependence, cigarettes, uncomplicated; R91.1 Solitary pulmonary nodule ==

== ENCOUNTER → 2024-02-16 | Outpatient (CLI) | payer OTHER, MEDICAID ==
[2024-02-16 15:12] LABS: BASO # 0.1 10^3/uL (0.0-0.2); EOS # 0.6 10^3/uL (0.0-0.5); EOS % 6.5 % (0.0-3.0); HEMATOCRIT 43.7 % (36.0-47.0); LYMPH # 2.4 10^3/uL (1.5-5.0); LYMPH % 27.1 % (24.0-44.0); MEAN CORPUSCULAR HEMOGLOBIN 30.9 pg (27.0-33.0); MEAN CORPUSCULAR HGB CONC 34.3 g/dl (32.0-36.5); MEAN CORPUSCULAR VOLUME 90.1 fl (80.0-96.0); MONO # 0.7 10^3/uL (0.0-0.8); MONO % 7.6 % (2.0-8.0); NEUTROPHILS # 5.1 10^3/uL (1.5-8.5); NEUTROPHILS % 57.6 % (36.0-66.0); PLATELET COUNT, AUTOMATED 347 10^3/uL (150-450); RED BLOOD COUNT 4.85 10^6/uL (4.00-5.40); WHITE BLOOD COUNT 8.8 10^3/uL (4.0-10.0)
[2024-02-16 15:39] LABS: BLOOD UREA NITROGEN 10 MG/DL (9-23); CALCIUM LEVEL 10.5 MG/DL (8.3-10.6); CARBON DIOXIDE LEVEL 27 MMOL/L (20-31); CHLORIDE LEVEL 96 MMOL/L (98-107); CREATININE FOR GFR 0.65 MG/DL (0.55-1.30); GLOMERULAR FILTRATION RATE > 60.0 (>45); GLUCOSE, FASTING 95 MG/DL (74-106); POTASSIUM SERUM 4.8 MMOL/L (3.5-5.1); SODIUM LEVEL 130 MMOL/L (136-145)
[2024-02-16 16:39] LABS: HEMOGLOBIN A1c 7.1 % (4.0-6.0)
== END ==
LOC: M PLAIMG 11:52
PROVIDERS: ATTEND Student in an Organized Health Care Education/Training Program
DX: R42 Dizziness and giddiness (principal); E11.9 Type 2 diabetes mellitus without complications

== ENCOUNTER → 2024-02-18 | Outpatient (REF) | payer OTHER, MEDICAID | LOC: M SFHCPLAZ 12:49 | PROVIDERS: ATTEND Family Medicine | DX: R42 Dizziness and giddiness (principal); E11.9 Type 2 diabetes mellitus without complications; I1A.0 Resistant hypertension; Z53.9 Procedure and treatment not carried out, unspecified reason ==

== ENCOUNTER → 2024-02-19 | Outpatient (CLI) | payer OTHER, MEDICAID | LOC: M WHC 18:16 | PROVIDERS: ATTEND Family Medicine | DX: Z53.9 Procedure and treatment not carried out, unspecified reason (principal) ==

== ENCOUNTER → 2024-03-02 | Outpatient (CLI) | payer OTHER, MEDICAID ==
[~2024-03-02] MED LIST changes: -ROSU20TA61 PO; +ROSU20TA86 PO
[2024-03-02 18:04] LABS: BLOOD UREA NITROGEN 10 MG/DL (9-23); CALCIUM LEVEL 10.1 MG/DL (8.3-10.6); CARBON DIOXIDE LEVEL 28 MMOL/L (20-31); CHLORIDE LEVEL 95 MMOL/L (98-107); CREATININE FOR GFR 0.64 MG/DL (0.55-1.30); GLOMERULAR FILTRATION RATE > 60.0 (>45); GLUCOSE, FASTING 121 MG/DL (74-106); POTASSIUM SERUM 4.6 MMOL/L (3.5-5.1); SODIUM LEVEL 130 MMOL/L (136-145)
== END ==
LOC: M PLALAB 15:56
PROVIDERS: ATTEND Student in an Organized Health Care Education/Training Program
DX: R42 Dizziness and giddiness (principal); E11.9 Type 2 diabetes mellitus without complications; I1A.0 Resistant hypertension; E87.1 Hypo-osmolality and hyponatremia

== ENCOUNTER → 2024-03-24 | Outpatient (CLI) | payer OTHER, MEDICAID | LOC: M RAD 07:34 | PROVIDERS: ATTEND Family Medicine | DX: I1A.0 Resistant hypertension (principal) ==

== ENCOUNTER → 2024-04-20 | Outpatient (REF) | payer OTHER, MEDICAID ==
[2024-04-20 17:41] LABS: APPEARANCE, URINE HAZY (CLEAR); BACTERIA, URINE AUTO 1+ (NEGATIVE); BILIRUBIN, URINE AUTO NEGATIVE (NEGATIVE); BLOOD, URINE BLOOD NEGATIVE (NEGATIVE); COLOR, URINE AMBER (YELLOW); GLUCOSE, URINE (UA) AUTO NEGATIVE (NEGATIVE); KETONE, URINE AUTO TRACE mg/dL (NEGATIVE); LEUKOCYTE ESTERASE, URINE AUTO 3+ (NEGATIVE); MUCUS, URINE SMALL (NEGATIVE); NITRITE, URINE AUTO NEGATIVE (NEGATIVE); PROTEIN, URINE AUTO 1+ mg/dL (NEGATIVE); RBC, URINE AUTO 5 /HPF (0-3); SPECIFIC GRAVITY URINE AUTO 1.021 (1.002-1.035); SQUAMOUS EPITHELIAL CELL UR AU 2 /HPF (0-6); TRANSITIONAL EPITHELIAL AUTO <1 /HPF; UROBILINOGEN, URINE AUTO 0.2 mg/dL (0.0-2.0); WBC, URINE AUTO TNTC /HPF (0-3)
== END ==
LOC: M LAB REF 16:39
PROVIDERS: ATTEND Physician Assistant
DX: N39.0 Urinary tract infection, site not specified (principal)

== ENCOUNTER → 2024-05-12 | Outpatient (CLI) | payer OTHER, MEDICAID ==
[~2024-05-12] MED LIST changes: -ADV250INH; -ADV250INH INH; +ADVA1AER9; +ADVA1AER9 INH
== END ==
LOC: M SOG 07:57
PROVIDERS: ATTEND Physician Assistant
DX: M54.2 Cervicalgia (principal); M54.50 Low back pain, unspecified; Z53.8 Procedure and treatment not carried out for other reasons

== ENCOUNTER → 2024-06-09 | Outpatient (REF) | payer MEDICARE, MEDICAID ==
[2024-06-09 17:15] LABS: AMORPHOUS SEDIMENT SMALL (NEGATIVE); APPEARANCE, URINE CLOUDY (CLEAR); BACTERIA, URINE AUTO 2+ (NEGATIVE); BILIRUBIN, URINE AUTO NEGATIVE (NEGATIVE); BLOOD, URINE BLOOD 2+ (NEGATIVE); COLOR, URINE AMBER (YELLOW); GLUCOSE, URINE (UA) AUTO NEGATIVE (NEGATIVE); KETONE, URINE AUTO TRACE mg/dL (NEGATIVE); LEUKOCYTE ESTERASE, URINE AUTO 3+ (NEGATIVE); MUCUS, URINE SMALL (NEGATIVE); NITRITE, URINE AUTO POSITIVE (NEGATIVE); PROTEIN, URINE AUTO 1+ mg/dL (NEGATIVE); RBC, URINE AUTO 125 /HPF (0-3); SPECIFIC GRAVITY URINE AUTO 1.013 (1.002-1.035); SQUAMOUS EPITHELIAL CELL UR AU 2 /HPF (0-6); UROBILINOGEN, URINE AUTO 0.2 mg/dL (0.0-2.0); WBC, URINE AUTO TNTC /HPF (0-3)
== END ==
LOC: M LAB REF 16:05
PROVIDERS: ATTEND Physician Assistant
DX: N39.0 Urinary tract infection, site not specified (principal)

== ENCOUNTER → 2024-06-09 | Outpatient (CLI) | payer OTHER, MEDICAID | LOC: M SOG 07:58 | PROVIDERS: ATTEND Physician Assistant | DX: M54.2 Cervicalgia (principal); M54.50 Low back pain, unspecified; M47.817 Spondylosis without myelopathy or radiculopathy, lumbosacral region; M47.816 Spondylosis without myelopathy or radiculopathy, lumbar region; M47.814 Spondylosis without myelopathy or radiculopathy, thoracic region ==

== ENCOUNTER → 2024-07-07 | Outpatient (REF) | payer MEDICARE, MEDICAID | LOC: M SFHCPLAZ 16:13 | PROVIDERS: ATTEND Internal Medicine Hematology | DX: E11.9 Type 2 diabetes mellitus without complications (principal); G89.29 Other chronic pain; Z79.899 Other long term (current) drug therapy; Z13.29 Encounter for screening for other suspected endocrine disorder; E55.9 Vitamin D deficiency, unspecified; E78.5 Hyperlipidemia, unspecified ==

== ENCOUNTER → 2024-07-26 | Outpatient (CLI) | payer MEDICARE, MEDICAID | LOC: M PLAIMG 15:15 | PROVIDERS: ATTEND Physician Assistant | DX: M54.2 Cervicalgia (principal); M47.814 Spondylosis without myelopathy or radiculopathy, thoracic region; M48.04 Spinal stenosis, thoracic region; M51.24 Other intervertebral disc displacement, thoracic region; D17.79 Benign lipomatous neoplasm of other sites; G95.29 Other cord compression; M24.28 Disorder of ligament, vertebrae; M51.A0 Intervertebral annulus fibrosus defect, lumbar region, unspecified size; M43.17 Spondylolisthesis, lumbosacral region ==

== ENCOUNTER → 2024-07-27 | Outpatient (CLI) | payer MEDICARE, MEDICAID | LOC: M PLAIMG 11:23 | PROVIDERS: ATTEND Physician Assistant | DX: G89.29 Other chronic pain (principal); E11.9 Type 2 diabetes mellitus without complications; M54.2 Cervicalgia; M54.6 Pain in thoracic spine; M54.50 Low back pain, unspecified; M48.02 Spinal stenosis, cervical region; M43.12 Spondylolisthesis, cervical region; Z79.899 Other long term (current) drug therapy; E55.9 Vitamin D deficiency, unspecified; E78.5 Hyperlipidemia, unspecified ==

== ENCOUNTER → 2024-07-27 | Outpatient (CLI) | payer MEDICARE, MEDICAID ==
[2024-07-27 15:20] LABS: BASO # 0.1 10^3/uL (0.0-0.2); EOS # 0.4 10^3/uL (0.0-0.5); EOS % 4.4 % (0.0-3.0); HEMOGLOBIN 14.5 g/dl (12.0-15.5); LYMPH # 1.8 10^3/uL (1.5-5.0); LYMPH % 21.6 % (24.0-44.0); MEAN CORPUSCULAR HEMOGLOBIN 30.5 pg (27.0-33.0); MEAN CORPUSCULAR HGB CONC 34.5 g/dl (32.0-36.5); MEAN CORPUSCULAR VOLUME 88.2 fl (80.0-96.0); MONO # 0.8 10^3/uL (0.0-0.8); MONO % 9.2 % (2.0-8.0); NEUTROPHILS # 5.2 10^3/uL (1.5-8.5); NEUTROPHILS % 63.3 % (36.0-66.0); PLATELET COUNT, AUTOMATED 327 10^3/uL (150-450); RED BLOOD COUNT 4.76 10^6/uL (4.00-5.40); WHITE BLOOD COUNT 8.2 10^3/uL (4.0-10.0)
[2024-07-27 15:28] LABS: ERYTHROCYTE SEDIMENTATION RATE 30 mm/hr (0-30)
[2024-07-27 15:39] LABS: CREATININE, URINE 65.1 MG/DL; MAU/CREAT RATIO 36.8 MCG/MG (0.0-30.0)
[2024-07-27 15:41] LABS: C REACTIVE PROTEIN QUANTITATIV < 0.50 MG/DL (<1.0)
[2024-07-27 15:42] LABS: ALBUMIN 4.5 G/DL (3.2-5.2); ALKALINE PHOSPHATASE 60 U/L (35-104); ALT/SGPT 29 U/L (7.0-40); AST/SGOT 14 U/L (<34); BILIRUBIN,TOTAL 0.6 MG/DL (0.3-1.2); BLOOD UREA NITROGEN 9 MG/DL (9-23); CALCIUM LEVEL 9.7 MG/DL (8.3-10.6); CARBON DIOXIDE LEVEL 26 MMOL/L (20-31); CHLORIDE LEVEL 96 MMOL/L (98-107); CHOLESTEROL LEVEL 94 MG/DL (<200); CHOLESTEROL RISK RATIO 2.25 (<5); CREATININE FOR GFR 0.57 MG/DL (0.55-1.30); FREE T4 1.37 NG/DL (0.89-1.76); GLOMERULAR FILTRATION RATE > 60.0 (>45); GLUCOSE, FASTING 145 MG/DL (74-106); HDL CHOLESTEROL 41.6 MG/DL (>40); LDL CHOLESTEROL 34.8 MG/DL (<100); MAGNESIUM LEVEL 1.4 MG/DL (1.8-2.4); NON-HDL-C 52.4 MG/DL; POTASSIUM SERUM 4.5 MMOL/L (3.5-5.1); SODIUM LEVEL 132 MMOL/L (136-145); TRIGLYCERIDES LEVEL 88 MG/DL (<150)
[2024-07-27 15:43] LABS: FOLATE > 24.0 NG/ML (>5.4); THYROID STIMULATING HORMONE 1.028 uIU/ML (0.55-4.78)
[2024-07-27 15:44] LABS: TOTAL 25(OH) VITAMIN D 40.8 NG/ML (20.0-100.0); VITAMIN B12 LEVEL 328 PG/ML (211-911)
[2024-07-27 15:47] LABS: PROCALCITONIN 0.05 ng/ml
== END ==
LOC: M PLALAB 12:33
DX: G89.29 Other chronic pain (principal); E11.9 Type 2 diabetes mellitus without complications; Z79.899 Other long term (current) drug therapy; Z13.29 Encounter for screening for other suspected endocrine disorder; E55.9 Vitamin D deficiency, unspecified; E78.5 Hyperlipidemia, unspecified

== ENCOUNTER → 2024-08-09 | Outpatient (CLI) | payer MEDICARE, MEDICAID | LOC: M RAD 06:45 | DX: N28.89 Other specified disorders of kidney and ureter (principal); Z13.6 Encounter for screening for cardiovascular disorders ==

== ENCOUNTER → 2025-04-17 | Outpatient (CLI) | payer MEDICARE, MEDICAID | LOC: M RAD 11:00 | PROVIDERS: ATTEND Internal Medicine Pulmonary Disease | DX: F17.210 Nicotine dependence, cigarettes, uncomplicated (principal) ==